=== PATIENT | male | born 1945 | race Caucasian/White ===

== ENCOUNTER 2017-12-30 05:44 | Day surgery (SDC) | payer MEDICARE, OTHER ==
[2017-12-28 08:54] LABS: ALBUMIN 3.6 g/dL (3.4-5.0); ANION GAP 5 mmol/L (5-15); CALCIUM 8.8 mg/dL (8.5-10.1); CHLORIDE 109 mmol/L (98-107)
[2017-12-28 08:58] LABS: ALANINE AMINOTRANSFERASE 24 U/L (12-78); ALKALINE PHOSPHATASE 51 U/L (45-117); BILIRUBIN,TOTAL 1.1 mg/dL (0.2-1.0); CREATININE 1.06 mg/dL (0.7-1.3); TOTAL PROTEIN 6.9 g/dL (6.4-8.2)
[~2017-12-30] VITALS: Ht 190.5 cm; Wt 100.5 kg
[~2017-12-30 05:44] MED LIST: B12 PO; CINNAMON PO; DOXA4TAB3 PO; LEVO137T3 PO; MAGNESIUM PO; MULT-516 PO; OLME5TAB4 PO; OMEG1CAP6 PO; PANT40TA3 PO
[2017-12-30 06:21] VITALS: BP 143/87
[2017-12-30] MEDS ORDERED: LACTATED RINGERS 1,000 ML IV SCH ×2 (06:21→08:52)
[2017-12-30] MEDS ORDERED: MIDAZOLAM 1 MG/ML, 2ML ONE (06:49)
[2017-12-30] MEDS ORDERED: FENTANYL PF 250 MCG/5ML ONE (06:49)
[2017-12-30] MEDS ORDERED: EPINEPHRINE 1 MG/ML, 1ML ONE (06:50)
[2017-12-30] MEDS ORDERED: BUPIVACAINE/PF 0.5% ONE (06:50)
[2017-12-30] MEDS ORDERED: PROPOFOL 10 MG/ML, 20ML ONE (06:53)
[2017-12-30] MEDS ORDERED: ROCURONIUM 10MG/ML,5ML ONE (06:54)
[2017-12-30] MEDS ORDERED: NEOSTIGMINE 1 MG/ML, 10ML ONE (06:55)
[2017-12-30] MEDS ORDERED: WATER-INJECTION,STERILE 10 ML IV ONE (06:55)
[2017-12-30] MEDS ORDERED: GLYCOPYRROLATE 0.4 MG/2 ML, 2ML ONE (06:55)
[2017-12-30] MEDS ORDERED: CEFAZOLIN 1,000 MG ONE ×2 (06:55→06:56)
[2017-12-30] MEDS ORDERED: ACETAMINOPHEN 500 MG TABLET PO ONE (07:00)
[2017-12-30] MEDS ORDERED: GABAPENTIN 300 MG CAPSULE PO ONE (07:00)
[2017-12-30] MEDS ORDERED: OxyconTIN ER 10 MG TAB.ER PO ONE (07:00)
[2017-12-30] MEDS ORDERED: MORPHINE SULFATE 4 MG/ML, 1ML IVPush PRN (07:30)
[2017-12-30] MEDS ORDERED: FENTANYL PF 100 MCG/2ML IV PRN (07:30)
[2017-12-30] MEDS ORDERED: OXYcodone 5 MG/5 ML ORAL.SOL UDC PO PRN (07:30)
[2017-12-30] MEDS ORDERED: ONDANSETRON ODT 8 MG PO PRN (07:30)
[2017-12-30] MEDS ORDERED: LABETALOL 5MG/ML, 20ML IV PRN (07:30)
[2017-12-30] MEDS ORDERED: HYDROmorphone 1 MG/ML, 1ML IV PRN (07:30)
[2017-12-30] MEDS ORDERED: PROMETHAZINE 25 MG/ML, 1ML IV PRN (07:30)
[2017-12-30] MEDS ORDERED: PROMETHAZINE 12.5 MG SUPP PR PRN (07:30)
[2017-12-30] MEDS ORDERED: PROMETHAZINE 25 MG SUPP PR PRN (07:30)
[2017-12-30] MEDS ORDERED: hydrALAzine 20 MG/ML, 1ML IV PRN (07:30)
[2017-12-30] MEDS ORDERED: MEPERIDINE/PF 25MG/0.5ML IVPush PRN (07:30)
[2017-12-30] MEDS ORDERED: PHENYLEPHRINE 10 MG/ML ONE (07:48)
[2017-12-30] MEDS ORDERED: HYDROcodone/APAP 7.5-325MG/15ML UDC PO PRN ×2 (09:00)
[2017-12-30] MEDS ORDERED: morphine SULFATE 10 MG/ML, 1ML IVPush PRN (09:00)
[2017-12-30] MEDS ORDERED: ONDANSETRON 2MG/ML, 2ML IVPush PRN (09:00)
[2017-12-30] MEDS ORDERED: KETOROLAC 30 MG/1 ML IVPush PRN (09:00)
[2017-12-30] MEDS ORDERED: OXYcodone 5 MG/5 ML ORAL.SOL UDC ONE (09:07)
[2017-12-30] MEDS ORDERED: KETOROLAC 30 MG/1 ML ONE (09:20)
[2017-12-30] MEDS ORDERED: MEPERIDINE/PF 50 MG/ML ONE (09:28)
== END 2017-12-30 12:55 ==
LOC: OUT 05:44
PROVIDERS: ATTEND Thoracic Surgery (Cardiothoracic Vascular Surgery)
DX: K44.9 Diaphragmatic hernia without obstruction or gangrene (principal); K21.9 Gastro-esophageal reflux disease without esophagitis; K22.70 Barrett's esophagus without dysplasia; N40.0 Benign prostatic hyperplasia without lower urinary tract symptoms; I10 Essential (primary) hypertension; K22.4 Dyskinesia of esophagus; E03.9 Hypothyroidism, unspecified; Z90.49 Acquired absence of other specified parts of digestive tract; Z98.890 Other specified postprocedural states; Z98.52 Vasectomy status; Z72.89 Other problems related to lifestyle; Z87.891 Personal history of nicotine dependence
CPT/HCPCS: 36415; 43281; 80053; 93005; J0171; J0690; J1885; J2175; J2250; J2370; J2704; J2710; J3010; J3490; J7120

== ENCOUNTER 2018-02-01 04:50 | Observation (INO) | payer MEDICARE, OTHER ==
[~2018-02-01] VITALS: Ht 190.5 cm; Wt 91.3 kg
[2018-02-01] MEDS ORDERED: ASPIRIN 81 MG TABLET CHEW PO ONE (05:30)
[2018-02-01] MEDS ORDERED: ASPIRIN 81 MG TABLET CHEW ONE (05:34)
[2018-02-01 06:08] LABS: BASOPHILS # (AUTO) 0.02 x10^3/uL (0-0.1); BASOPHILS % (AUTO) 0 % (0-1); EOSINOPHILS # (AUTO) 0.29 x10^3/uL (0-0.4); EOSINOPHILS % (AUTO) 6 % (1-7); LYMPHOCYTES # (AUTO) 1.12 x10^3/uL (1-3.4); LYMPHOCYTES % (AUTO) 24 % (22-44); MD NO; MEAN CORPUSCULAR HEMOGLOBIN 31.1 pg (27.5-34.5); MEAN CORPUSCULAR HGB CONC 34.1 g/dL (33.2-36.2); MEAN CORPUSCULAR VOLUME 91.2 fL (81-97); MEAN PLATELET VOLUME 7.7 fL (7.4-10.4); MONOCYTES # (AUTO) 0.48 x10^3/uL (0.2-0.8); MONOCYTES % (AUTO) 10 % (2-9); NEUTROPHILS # (AUTO) 2.73 x10^3/uL (1.8-6.8); NEUTROPHILS % (AUTO) 59 % (42-75); PLATELET COUNT 197 x10^3/uL (130-400); RED BLOOD COUNT 4.13 x10^6/uL (4.38-5.82); RED CELL DISTRIBUTION WIDTH 13.5 % (9.4-14.8)
[2018-02-01 06:20] LABS: MICROSCOPIC NOT IND
[2018-02-01 06:21] LABS: CULTURE INDICATED? NO
[2018-02-01 06:21] LABS: ALANINE AMINOTRANSFERASE 23 U/L (12-78); ALBUMIN 3.4 g/dL (3.4-5.0); ANION GAP 4 mmol/L (5-15); CALCIUM 8.6 mg/dL (8.5-10.1); CHLORIDE 111 mmol/L (98-107); CREATININE 0.91 mg/dL (0.7-1.3)
[2018-02-01 06:25] LABS: ALKALINE PHOSPHATASE 51 U/L (45-117); BILIRUBIN,TOTAL 0.9 mg/dL (0.2-1.0); TOTAL PROTEIN 6.5 g/dL (6.4-8.2); TROPONIN I < 0.015 ng/mL (0.000-0.045)
[2018-02-01] MEDS ORDERED: morphine SULFATE 10 MG/ML, 1ML IVPush PRN (08:00)
[2018-02-01] MEDS ORDERED: hydrALAzine 20 MG/ML, 1ML IVPush PRN (08:00)
[2018-02-01] MEDS ORDERED: ACETAMINOPHEN 325 MG TABLET PO PRN (08:00)
[2018-02-01] MEDS ORDERED: DOXAZOSIN 2MG TABLET PO SCH ×2 (09:00→21:00)
[2018-02-01 09:30] VITALS: BP 129/80
[2018-02-01] MEDS: SODIUM CHLORIDE FLUSH 10ML SYR IVF SCH ×2 (09:53→20:21)
[2018-02-01] MEDS: LEVOTHYROXINE 137 MCG TABLET PO SCH (09:53)
[2018-02-01 12:56] LABS: TROPONIN I < 0.015 ng/mL (0.000-0.045)
[2018-02-01 13:07] VITALS: BP 134/74
[2018-02-01 19:12] VITALS: BP 125/75
[2018-02-01 19:12] LABS: TROPONIN I < 0.015 ng/mL (0.000-0.045)
[2018-02-02 01:07] VITALS: BP 113/72
[2018-02-02 05:07] LABS: CHOL/HDL RATIO 2.6; LDL/HDL RATIO 1.3 (0.5-3.0)
[2018-02-02 06:39] VITALS: BP 122/74
[2018-02-02] MEDS ORDERED: REGADENOSON 0.4 MG/5 ML SYRINGE ONE (07:42)
[2018-02-02] MEDS: LEVOTHYROXINE 137 MCG TABLET PO SCH (07:59)
[2018-02-02] MEDS: SODIUM CHLORIDE FLUSH 10ML SYR IVF SCH (08:00)
[2018-02-02 12:36] VITALS: BP 126/78
== END 2018-02-02 18:09 | disposition home or self-care (01) ==
LOC: ED 06:10 → EDIP 07:20 → 5SO 08:54
PROVIDERS: ADMIT Hospitalist; ATTEND Hospitalist
DX: R07.89 Other chest pain (principal); E03.9 Hypothyroidism, unspecified; I10 Essential (primary) hypertension; K21.9 Gastro-esophageal reflux disease without esophagitis; N40.0 Benign prostatic hyperplasia without lower urinary tract symptoms; Z82.49 Family history of ischemic heart disease and other diseases of the circulatory system; Z79.82 Long term (current) use of aspirin
CPT/HCPCS: 36415; 71046; 74022; 78452; 80053; 80061; 81003; 83690; 84484; 85025; 93005; 93017; 99285; A9502; C9898; G0378; J2785

== ENCOUNTER → 2019-08-11 | Outpatient (CLI) | payer MEDICARE, OTHER | END | disposition home or self-care (01) | LOC: CFH 08:37 | PROVIDERS: ATTEND Internal Medicine Cardiovascular Disease | DX: I08.2 Rheumatic disorders of both aortic and tricuspid valves (principal); I10 Essential (primary) hypertension; E78.5 Hyperlipidemia, unspecified; R01.1 Cardiac murmur, unspecified | CPT/HCPCS: 93306 ==

== ENCOUNTER → 2019-11-03 | Outpatient (CLI) | payer MEDICARE, OTHER ==
[~2019-11-03] MED LIST changes: +OMNIPAQUE 350 MG/ML, 100ML BOTTLE ONE
== END | disposition home or self-care (01) ==
LOC: CFH 09:10
PROVIDERS: ATTEND Internal Medicine Cardiovascular Disease
DX: R91.1 Solitary pulmonary nodule (principal); I10 Essential (primary) hypertension
CPT/HCPCS: 71275; 82565; Q9967

== ENCOUNTER 2020-10-05 07:41 | Outpatient (CLI) | payer MEDICARE, OTHER ==
[~2020-10-05 07:41] MED LIST changes: -OMNIPAQUE 350 MG/ML, 100ML BOTTLE ONE
[2020-10-05 08:12] LABS: CREATININE 1.12 mg/dL (0.7-1.3)
[2020-10-05] MEDS ORDERED: OMNIPAQUE 350 MG/ML, 75ML BOTTLE ONE (08:50)
== END 2020-10-05 23:59 | disposition home or self-care (01) ==
LOC: RAD 07:41 → EDSTATUS 08:00 → RAD 23:59
PROVIDERS: ATTEND Internal Medicine Cardiovascular Disease
DX: I71.2 Thoracic aortic aneurysm, without rupture (principal)
CPT/HCPCS: 36415; 71275; 82565; Q9967